=== PATIENT | female | born 1955 | race Caucasian/White ===

== ENCOUNTER 2016-09-05 12:03 | Day surgery (SDC) | payer OTHER ==
[~2016-09-05] VITALS: Ht 157.5 cm; Wt 56.7 kg
[~2016-09-05 12:03] MED LIST: ASCO500C6 PO; CALC-243 PO; CHOL100045 PO; CIPR250T3 PO; LEVO100T6 PO; Lactated Ringer's 1,000 ML IV ONE; MULT-1018 PO; OMEG-38 PO; [UNRECOGNIZED DRUG - CODE] PO
[2016-09-05] MEDS ORDERED: Propofol 10 mg/mL 20 mL Inj ONE (12:04)
[2016-09-05 12:47] VITALS: BP 135/79; PULSE 61; O2SAT 100
[2016-09-05 14:21] VITALS: BP 94/60; PULSE 55; RESP 14; O2SAT 99
[2016-09-05 14:33] VITALS: BP 100/63; PULSE 50; RESP 16; O2SAT 98
--- NOTE | 2016-09-05 14:40 | ENDO ---
[address] [address] ENDOSCOPY PROCEDURE PATIENT: BERTRAM JIMENEZ : 1955 MR#: [id number] ADMIT: 09/05/2016 JOB ID: [id number] DATE: 09/05/2016 PRE-PROCEDURE DIAGNOSIS: Colon cancer screening. POSTPROCEDURE DIAGNOSIS: Colon cancer screening. PROCEDURE PERFORMED: Colonoscopy with snare polypectomy. SURGEON: Madison Azul M.D. INSTRUMENT: [employer] [facility] H 180 AL ANESTHESIA: Monitored anesthesia care. The prep was good. Withdrawal time: 12 minutes. HISTORY OF PRESENT ILLNESS: This is a 60-year-old woman who had never had a colonoscopy. She, therefore, presented for screening colonoscopy. FINDINGS: 1. A single 7 mm polyp was identified in the sigmoid colon at 18 cm and was removed with snare polypectomy and sent for final pathology. 2. Trace melanosis coli. DESCRIPTION OF PROCEDURE: The patient was brought to the endoscopy suite, and placed in left lateral decubitus position. Monitored anesthesia care was induced. 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 A digital rectal examination was performed and was normal. There were no external signs of hemorrhoids. The colonoscope was advanced to the cecum and into the terminal ileum. 10 cm of terminal ileum was visualized, and was normal. The colonoscope was withdrawn over the course of 12 minutes. The mucosa was well visualized, and the only abnormality was trace melanosis coli throughout the colon, and a single 7 mm polyp at 18 cm in the sigmoid colon. This was removed with snare cautery. The colonoscope was withdrawn. Retroflexed examination of the rectum showed mild internal hemorrhoids. The patient tolerated the procedure well. COMPLICATIONS: None. ESTIMATED BLOOD LOSS: None. SPECIMENS: Sigmoid polyp at 18 cm for final pathology. DISPOSITION: Repeat in five years if adenoma, 10 years if hyperplastic.
--- NOTE | 2016-09-10 10:43 | PATH ---
SURGICAL PATHOLOGY Attending Physician:Madison Azul MD CASE STATUS: Signed Out PATIENT NAME: BERTRAM JIMENEZ PID: [id number] : 1955 DATE COLLECTED:09/05/2016 00:00 SPECIMEN: Colon, Polyp CLINICAL HISTORY: 1). SIGMOID COLON POLYP @ 18CM FINAL DIAGNOSIS: 1.SIGMOID COLON POLYP AT 18 CM: TUBULAR ADENOMA. ICD10 D12.5 GROSS DESCRIPTION: The specimen is received in one formalin filled container labeled with the patient's name, sublabeled "sigmoid colon polyp at 18 CM" and consists of a 0.2 x 0.1 x 0.1 CM portion of tissue which is entirely submitted in one cassette. 09/09/2016 DAC MICRO DESCRIPTION: See diagnosis. ICD-9 CODES: CPT CODES: 1: 64502 Electronically Signed Out Duke Farah MD [facility] [address], [place] [address] Technical component performed at [facility], [facility] [address], [place], [address]
== END 2016-09-05 23:59 | disposition home or self-care (01) ==
LOC: END 12:03
PROVIDERS: ATTEND Surgery
DX: Z12.11 Encounter for screening for malignant neoplasm of colon (principal); Z80.0 Family history of malignant neoplasm of digestive organs; D12.5 Benign neoplasm of sigmoid colon; K63.89 Other specified diseases of intestine; Q82.2 Congenital cutaneous mastocytosis; E03.9 Hypothyroidism, unspecified; Z87.440 Personal history of urinary (tract) infections
CPT/HCPCS: 45385; J7120